=== PATIENT | female | born 1975 | race Caucasian/White ===

== ENCOUNTER 2016-12-16 19:10 | Emergency (ER) | payer OTHER ==
[2016-12-16 20:21] LABS: BASOPHIL % 0.6 % (0-2); PLATELET COUNT 313 x10^3mcL (130-400); RED CELL DISTRIBUTION WIDTH 14.8 % (11.5-14.5)
[2016-12-16 20:40] LABS: ALKALINE PHOSPHATASE 117 U/L (46-116); ALT/SGPT 17 U/L (14-59); AMYLASE 29 U/L (25-115); AST/SGOT 12 U/L (15-37); BILIRUBIN TOTAL 0.5 mg/dL (0.20-1.00); CALCIUM 8.4 mg/dL (8.5-10.1); CARBON DIOXIDE 26.4 mmol/L (21-32); CHLORIDE SERUM 103 mmol/L (98-107); CHOLESTEROL 191 mg/dL (<200); CREATININE SERUM 0.7 mg/dL (0.6-1.0); GFR1 > 60 mL/min; GLUCOSE SERUM 159 mg/dL (74-106); HDL CHOLESTEROL 45 mg/dL (40-60); LIPASE 120 IU/L (73-393); SODIUM SERUM 135 mmol/L (136-145); T4(THYROXINE) 7.4 ug/dL (4.7-13.3); TOTAL PROTEIN, SERUM 7.1 g/dL (6.4-8.2)
[2016-12-16 20:41] LABS: ALBUMIN 2.8 g/dL (3.4-5.0)
[2016-12-16 21:28] LABS: microscopic required? YES; urine erythrocyte 3+ (NEGATIVE)
[2016-12-16 21:38] VITALS: BP 133/86
[2016-12-16 21:41] LABS: AMPHETAMINE QUAL UR NONE DETECTED (NEG <=1000)
== END 2016-12-16 23:28 | disposition home or self-care (01) ==
LOC: ED 19:10
PROVIDERS: Emergency Medicine
DX: F41.0 Panic disorder [episodic paroxysmal anxiety] (principal); E87.6 Hypokalemia; I10 Essential (primary) hypertension; E46 Unspecified protein-calorie malnutrition; Z88.0 Allergy status to penicillin
CPT/HCPCS: 82962; 83880; J2060; Q0092